=== PATIENT | female | born 1985 | race African-American/Black ===

== ENCOUNTER 2016-10-04 20:25 | Emergency (ER) | payer OTHER ==
[~2016-10-04] VITALS: Ht 152.4 cm; Wt 58.5 kg
[2016-10-05] MEDS ORDERED: ONDANSETRON HCL 4MG/2ML VIAL IV STA (00:01)
[2016-10-05] MEDS ORDERED: FAMOTIDINE 20MG/2ML VIAL IV STA (00:01)
[2016-10-05] MEDS ORDERED: MAGNESIUM/ALUMINUM HYDROXIDE/SIMETHICONE 30ML UDC PO STA (00:01)
[2016-10-05] MEDS ORDERED: SODIUM CHLORIDE 0.9% 1,000 ML IV ONE (00:01)
[2016-10-05] MEDS ORDERED: KETOROLAC 30MG/ML VIAL IV STA (00:01)
[2016-10-05] MEDS ORDERED: VISCOUS LIDOCAINE 2% 15 ML UDC PO STA (00:01)
[2016-10-05 00:23] LABS: CHLORIDE 103 mEq/L (98-107); INDEX HEMOLYSI 1 (1-3); INDEX ICTERIC 1 (1-4); INDEX LIPEMIC 1 (1-3)
[2016-10-05 00:24] LABS: HEMOGLOBIN. 14.3 g/dL (12.0-16.0); MEAN CORPUSCULAR HEMOGLOBIN 32.1 pg (28.0-32.0); MEAN CORPUSCULAR HGB CONC 34.8 g/dL (31.0-37.0); MEAN CORPUSCULAR VOLUME 92.3 fL (81.0-99.0); MEAN PLATELET VOLUME 7.8 fl (7.4-10.4); PLATELET 361 x1000/uL (130-400); RED BLOOD CELL COUNT 4.44 mill/uL (4.2-5.4)
[2016-10-05 00:30] LABS: DIFFERENTIAL COMMENT 1
[2016-10-05 00:31] LABS: ALANINE AMINOTRANSFERASE 19 IU/L (13-61); ANION GAP 14; CALCIUM 8.4 mg/dL (8.5-10.1); CARBON DIOXIDE 28 mEq/L (21-32); LIPASE 106 IU/L (73-393); UREA NITROGEN BLOOD 13 mg/dL (7-21); eGFR > 60 mL/min (>60)
[2016-10-05 01:00] LABS: PLATELET ESTIMATE NORMAL
[2016-10-05 02:10] LABS: CLARITY URINE CLEAR (CLEAR); COLOR URINE YELLOW (YELLOW); GLUCOSE URINE NEGATIVE (NEGATIVE); KETONES URINE 2+ (NEGATIVE); LEUKOCYTE ESTERASE URINE NEGATIVE (NEGATIVE); NITRITE URINE NEGATIVE (NEGATIVE); OCCULT BLOOD URINE TRACE (NEGATIVE); PROTEIN URINE NEGATIVE (NEGATIVE); SPECIFIC GRAVITY URINE 1.016 (1.005-1.030); UROBILINOGEN URINE 0.2 E.U./dL (0.2-1.0)
[2016-10-05 02:15] LABS: BACTERIA URINE TRACE; RBC URINE 0-2 /hpf (0-2); SQUAMOUS EPITHELIAL CELL URINE FEW /lpf (RARE/1+); WBC URINE 0-2 /hpf (0-2)
[2016-10-05 02:42] LABS: *AMPHETAMINES SCREEN URINE NEGATIVE (NEGATIVE); *BARBITURATES SCREEN URINE NEGATIVE (NEGATIVE); *BENZODIAZEPINES SCREEN URINE NEGATIVE (NEGATIVE); *COCAINE SCREEN URINE NEGATIVE (NEGATIVE); CANNABINOID URINE SCREEN PRESUMTIVE POSITIVE (NEGATIVE); ECSTASY MDMA SCREEN URINE NEGATIVE (NEGATIVE); METHADONE URINE SCREEN NEGATIVE (NEGATIVE); OPIATES URINE SCREEN NEGATIVE (NEGATIVE); PHENCYCLIDINE URINE SCREEN NEGATIVE (NEGATIVE)
[2016-10-05 03:16] VITALS: BP 109/77
== END 2016-10-05 03:17 | disposition home or self-care (01) ==
LOC: ER 20:25
DX: N83.202 Unspecified ovarian cyst, left side (principal); N83.201 Unspecified ovarian cyst, right side; Z79.899 Other long term (current) drug therapy
CPT/HCPCS: 36415; 76830; 76856; 80053; 80305; 81001; 81025; 83690; 85025; 96361; 96374; 96375; 99285; J1885; J2405; J3490; J7030

== ENCOUNTER 2017-01-24 12:11 | Emergency (ER) | payer SELFPAY ==
[~2017-01-24] VITALS: Ht 152.4 cm; Wt 58.0 kg
[2017-01-24] MEDS ORDERED: TETANUS, DIPHTHERIA, PERTUSSIS VAC/PF 0.5ML (>7YR OLD) IM ONE (12:45)
[2017-01-24] MEDS ORDERED: LIDOCAINE HCL 1% 20ML VIAL (Pyxis) INJ MC ONE (12:45)
[2017-01-24] MEDS ORDERED: BACITRACIN ZINC OINT UDPKT TOP ONE (12:45)
[2017-01-24 12:50] VITALS: BP 127/91
== END 2017-01-24 14:58 | disposition home or self-care (01) ==
LOC: ER 13:46
DX: S61.211A Laceration without foreign body of left index finger without damage to nail, initial encounter (principal); W45.8XXA Other foreign body or object entering through skin, initial encounter; Y93.89 Activity, other specified; Y92.89 Other specified places as the place of occurrence of the external cause
CPT/HCPCS: 12001; 90471; 90715; 99283; J3490

== ENCOUNTER 2017-06-28 01:09 | Emergency (ER) | payer SELFPAY ==
[~2017-06-28] VITALS: Ht 152.4 cm; Wt 56.8 kg
[2017-06-28 01:10] VITALS: BP 117/81
== END 2017-06-28 03:35 | disposition left against medical advice (07) ==
LOC: ER 01:28
DX: Z53.21 Procedure and treatment not carried out due to patient leaving prior to being seen by health care provider (principal)

== ENCOUNTER 2018-06-09 14:31 | Emergency (ER) | payer MEDICAID ==
[~2018-06-09] VITALS: Ht 165.1 cm; Wt 78.0 kg
[2018-06-09 14:36] VITALS: BP 121/98
== END 2018-06-09 14:58 | disposition left against medical advice (07) ==
LOC: ER 14:43
DX: R10.32 Left lower quadrant pain (principal); R10.31 Right lower quadrant pain; Z53.21 Procedure and treatment not carried out due to patient leaving prior to being seen by health care provider

== ENCOUNTER 2018-09-19 09:31 | Emergency (ER) | payer MEDICAID ==
[~2018-09-19] VITALS: Ht 152.4 cm; Wt 62.0 kg
[2018-09-19] MEDS ORDERED: ACETAMINOPHEN 325MG TABLET PO PRN (10:30)
[2018-09-19 10:53] LABS: BASOPHILS % 0.8 % (0.0-2.0); EOSINOPHILS % 1.3 % (0.0-5.0); HEMATOCRIT. 39.8 % (36.0-48.0); HEMOGLOBIN. 13.7 g/dL (12.0-16.0); LYMPHOCYTES % 10.3 % (20.0-50.0); MEAN CORPUSCULAR VOLUME 92.6 fL (81.0-99.0); MEAN PLATELET VOLUME 7.2 fl (7.4-10.4); MONOCYTES % 7.5 % (2.0-8.0); NEUTROPHILS % 80.1 % (40.0-76.0); PLATELET 439 x1000/uL (130-400); RED BLOOD CELL COUNT 4.29 mill/uL (4.2-5.4); RED CELL DISTRIBUTION WIDTH 12.8 % (11.6-14.6)
[2018-09-19 10:59] LABS: CHLORIDE 106 mEq/L (98-107)
[2018-09-19 11:23] LABS: B-HCG QUANTITATIVE 53567 mIU/mL (<3)
[2018-09-19 11:43] LABS: CLARITY URINE CLEAR (CLEAR); COLOR URINE YELLOW (YELLOW); KETONES URINE TRACE (NEGATIVE); LEUKOCYTE ESTERASE URINE NEGATIVE (NEGATIVE); NITRITE URINE NEGATIVE (NEGATIVE); OCCULT BLOOD URINE NEGATIVE (NEGATIVE); PROTEIN URINE NEGATIVE (NEGATIVE); SPECIFIC GRAVITY URINE 1.008 (1.005-1.030); UROBILINOGEN URINE 0.2 E.U./dL (0.2-1.0)
[2018-09-19 14:18] VITALS: BP 111/65
== END 2018-09-19 14:20 | disposition home or self-care (01) ==
LOC: ER 09:31
DX: O26.891 Other specified pregnancy related conditions, first trimester (principal); S39.012A Strain of muscle, fascia and tendon of lower back, initial encounter; Z3A.08 8 weeks gestation of pregnancy; V43.52XA Car driver injured in collision with other type car in traffic accident, initial encounter; Y93.89 Activity, other specified; Y92.410 Unspecified street and highway as the place of occurrence of the external cause
CPT/HCPCS: 36415; 76801; 84702; 86850; 86900; 99284

== ENCOUNTER 2019-04-08 09:20 | Observation (INO) | payer MEDICARE ==
[~2019-04-08] VITALS: Ht 152.4 cm; Wt 79.4 kg
[2019-04-08] MEDS ORDERED: PNV1TABL76 PO (10:00)
== END 2019-04-08 11:05 | disposition home or self-care (01) ==
LOC: 8 EST LDRP 09:20
PROVIDERS: ADMIT Obstetrics & Gynecology; ATTEND Specialist
DX: O26.893 Other specified pregnancy related conditions, third trimester (principal); R10.30 Lower abdominal pain, unspecified; O62.9 Abnormality of forces of labor, unspecified; Z3A.37 37 weeks gestation of pregnancy
CPT/HCPCS: 99281; G0378

== ENCOUNTER 2020-01-23 07:46 | Observation (INO) | payer MEDICARE ==
[~2020-01-23] VITALS: Ht 152.4 cm; Wt 68.0 kg
[2020-01-23] MEDS ORDERED: ACETAMINOPHEN 325MG TABLET PO PRN (08:15)
[2020-01-23 08:38] LABS: BASOPHILS % 0.9 % (0.0-2.0); EOSINOPHILS % 2.9 % (0.0-5.0); HEMOGLOBIN. 9.2 g/dL (12.0-16.0); LYMPHOCYTES % 18.4 % (20.0-50.0); MEAN CORPUSCULAR HEMOGLOBIN 32.7 pg (28.0-32.0); MEAN CORPUSCULAR VOLUME 95.5 fL (81.0-99.0); MEAN PLATELET VOLUME 7.7 fl (7.4-10.4); MONOCYTES % 6.9 % (2.0-8.0); NEUTROPHILS % 70.9 % (40.0-76.0); PLATELET 248 x1000/uL (130-400); RED BLOOD CELL COUNT 2.83 mill/uL (4.2-5.4)
[2020-01-23 08:43] LABS: CHLORIDE 107 mEq/L (98-107)
[2020-01-23 09:07] LABS: B-HCG QUANTITATIVE 3780 mIU/mL (<3)
[2020-01-23 10:17] VITALS: BP 125/70
[2020-01-23] MEDS ORDERED: FOLI0.4T2 PO (10:49)
[2020-01-23] MEDS ORDERED: PNV1TABL76 PO (10:49)
[2020-01-23] MEDS ORDERED: LACTATED RINGERS 1,000 ML IV SCH ×2 (10:50→11:50)
[2020-01-23] MEDS ORDERED: ACETAMINOPHEN 500MG TABLET PO SCH (11:00)
[2020-01-23 12:08] LABS: CLARITY URINE CLEAR (CLEAR); COLOR URINE YELLOW (YELLOW); KETONES URINE TRACE (NEGATIVE); LEUKOCYTE ESTERASE URINE NEGATIVE (NEGATIVE); NITRITE URINE NEGATIVE (NEGATIVE); OCCULT BLOOD URINE NEGATIVE (NEGATIVE); PH URINE 7.5 (4.5-8.0); PROTEIN URINE NEGATIVE (NEGATIVE); SPECIFIC GRAVITY URINE 1.011 (1.005-1.030); UROBILINOGEN URINE 0.2 E.U./dL (0.2-1.0)
== END 2020-01-23 12:50 | disposition home or self-care (01) ==
LOC: ER 07:46 → 8 EST A/PP 10:28
PROVIDERS: ADMIT Obstetrics & Gynecology; ATTEND Obstetrics & Gynecology
DX: O26.892 Other specified pregnancy related conditions, second trimester (principal); R10.32 Left lower quadrant pain; O26.832 Pregnancy related renal disease, second trimester; O09.522 Supervision of elderly multigravida, second trimester; N28.81 Hypertrophy of kidney; R10.2 Pelvic and perineal pain; Z3A.20 20 weeks gestation of pregnancy
CPT/HCPCS: 36415; 59025; 76805; 80053; 81003; 84702; 85025; 86850; 86900; 86901; 93005; 96360; 96361; 99285; G0378; 99281

== ENCOUNTER 2020-04-01 10:59 | Emergency (ER) | payer MEDICARE ==
[~2020-04-01] VITALS: Ht 152.4 cm; Wt 73.0 kg
[~2020-04-01 10:59] MED LIST: FOLI0.4T2 PO; PNV1TABL76 PO
[2020-04-01] MEDS ORDERED: ACETAMINOPHEN 325MG TABLET PO ONE (12:30)
[2020-04-01 12:55] VITALS: BP 124/81
== END 2020-04-01 12:57 | disposition home or self-care (01) ==
LOC: ER 11:18
DX: M25.531 Pain in right wrist (principal)
CPT/HCPCS: 29125; 99283

== ENCOUNTER 2020-06-04 01:03 | Observation (INO) | payer MEDICARE ==
[~2020-06-04] VITALS: Ht 152.4 cm; Wt 76.7 kg
[2020-06-04] MEDS ORDERED: LACTATED RINGERS 1,000 ML IV SCH (02:30)
== END 2020-06-04 04:55 | disposition home or self-care (01) ==
LOC: 8 EST LDRP 01:03
PROVIDERS: ADMIT Obstetrics & Gynecology; ATTEND Obstetrics & Gynecology
DX: O62.9 Abnormality of forces of labor, unspecified (principal); Z3A.38 38 weeks gestation of pregnancy
CPT/HCPCS: 59025; 96360; 96361; G0378; 99281

== ENCOUNTER 2020-06-08 05:49 | Inpatient (IN) | payer MEDICARE ==
[~2020-06-08] VITALS: Ht 162.6 cm; Wt 81.6 kg
[2020-06-08] MEDS ORDERED: RHO(D) IMMUNE GLOBULIN 300 MCG/SYR IM ONE (07:30)
[2020-06-08] MEDS ORDERED: LIDOCAINE HCL 1% 20ML VIAL (Pyxis) INJ INFIL SCH (07:30)
[2020-06-08] MEDS ORDERED: BUTORPHANOL TARTRATE 2 MG/ML VIAL IV PRN (07:30)
[2020-06-08] MEDS ORDERED: PENICILLIN G POTASSIUM 5 MMU in DEXT 5% WATER 100 ML IV SCH (08:00)
[2020-06-08] MEDS: LACTATED RINGERS 1,000 ML IV SCH ×2 (08:15→10:52)
[2020-06-08 09:05] LABS: CLARITY URINE CLEAR (CLEAR); COLOR URINE YELLOW (YELLOW); KETONES URINE NEGATIVE (NEGATIVE); LEUKOCYTE ESTERASE URINE TRACE (NEGATIVE); NITRITE URINE NEGATIVE (NEGATIVE); OCCULT BLOOD URINE TRACE (NEGATIVE); PROTEIN URINE NEGATIVE (NEGATIVE); SPECIFIC GRAVITY URINE 1.011 (1.005-1.030); UROBILINOGEN URINE 0.2 E.U./dL (0.2-1.0)
[2020-06-08 09:06] LABS: BASOPHILS % 0.5 % (0.0-2.0); EOSINOPHILS % 1.1 % (0.0-5.0); HEMATOCRIT. 39.3 % (36.0-48.0); HEMOGLOBIN. 13.6 g/dL (12.0-16.0); LYMPHOCYTES % 10.2 % (20.0-50.0); MEAN CORPUSCULAR HEMOGLOBIN 31.9 pg (28.0-32.0); MEAN CORPUSCULAR VOLUME 92.2 fL (81.0-99.0); MEAN PLATELET VOLUME 8.8 fl (7.4-10.4); MONOCYTES % 7.3 % (2.0-8.0); NEUTROPHILS % 80.9 % (40.0-76.0); PLATELET 311 x1000/uL (130-400); RED BLOOD CELL COUNT 4.26 mill/uL (4.2-5.4); RED CELL DISTRIBUTION WIDTH 14.6 % (11.6-14.6)
[2020-06-08 09:13] LABS: INR 0.9; PARTIAL THROMBOPLASTIN TIME 30.7 sec (23.4-31.0)
[2020-06-08] MEDS ORDERED: ROPIVACAINE HCL 2MG/ML (0.2%) 100ML BAG IR NR (09:15)
[2020-06-08 09:16] LABS: *AMPHETAMINES SCREEN URINE NEGATIVE (NEGATIVE); *BARBITURATES SCREEN URINE NEGATIVE (NEGATIVE); *BENZODIAZEPINES SCREEN URINE NEGATIVE (NEGATIVE); *COCAINE SCREEN URINE NEGATIVE (NEGATIVE); METHADONE URINE SCREEN NEGATIVE (NEGATIVE); OPIATES URINE SCREEN NEGATIVE (NEGATIVE)
[2020-06-08 09:17] LABS: CANNABINOID URINE SCREEN NEGATIVE (NEGATIVE); PHENCYCLIDINE URINE SCREEN NEGATIVE (NEGATIVE)
[2020-06-08 11:29] LABS: HEPATITIS B SURFACE ANTIGEN NEGATIVE
[2020-06-08] MEDS ORDERED: PENICILLIN G POTASSIUM 2.5 MMU in DEXTROSE 5% WATER 50 ML IV SCH (12:00)
[2020-06-08] MEDS ORDERED: ACETAMINOPHEN 500MG TABLET PO NR (13:00)
[2020-06-08] MEDS ORDERED: DEXT 5%/LR + PITOCIN 20UNITS/L 1,000 ML IV ONE (13:24)
[2020-06-08] MEDS ORDERED: IBUPROFEN 400MG TABLET PO PRN (13:45)
[2020-06-08] MEDS ORDERED: HEMORRHOIDAL SUPP PR PRN (13:45)
[2020-06-08] MEDS ORDERED: BENZOCAINE/LANOLIN/ALOE VERA SPRAY TOP PRN (13:45)
[2020-06-08] MEDS ORDERED: GLYCERIN/WITCH HAZEL LEAF MEDICATED PAD TOP PRN (13:45)
[2020-06-08] MEDS ORDERED: DIPHENHYDRAMINE 25MG CAPSULE PO PRN (13:45)
[2020-06-08] MEDS ORDERED: DEXT 5%/LR + PITOCIN 20UNITS/L 1,000 ML IV SCH (13:45)
[2020-06-08] MEDS ORDERED: BISACODYL 10MG SUPP PR PRN (13:45)
[2020-06-08 14:49] LABS: CHLORIDE 108 mEq/L (98-107)
[2020-06-08 16:00] VITALS: BP 102/61
[2020-06-08] MEDS: ACETAMINOPHEN WITH CODEINE 300/30MG TABLET PO PRN (16:31)
[2020-06-08 17:00] VITALS: BP 117/80
[2020-06-08] MEDS: IBUPROFEN 800MG TABLET PO PRN (17:03)
[2020-06-08] MEDS: AMPICILLIN 2,000 MG in SODIUM CHLORIDE 0.9% 100 ML IV SCH ×2 (17:03→22:45)
[2020-06-08] MEDS: GENTAMICIN 100MG PREMIX 50 ML IV SCH (17:53)
[2020-06-08 20:00] VITALS: BP 104/52
[2020-06-08] MEDS: DOCUSATE SODIUM 100MG CAPSULE PO SCH (21:14)
[2020-06-09 04:00] VITALS: BP 92/61
[2020-06-09] MEDS ORDERED: IBUP-2030 PO (04:25)
[2020-06-09] MEDS ORDERED: FERR325T23 PO (04:25)
[2020-06-09] MEDS: AMPICILLIN 2,000 MG in SODIUM CHLORIDE 0.9% 100 ML IV SCH ×4 (04:30→22:49)
[2020-06-09] MEDS: IBUPROFEN 800MG TABLET PO PRN ×3 (04:30→20:41)
[2020-06-09] MEDS: GENTAMICIN 100MG PREMIX 50 ML IV SCH ×2 (05:56→18:20)
[2020-06-09] MEDS: ACETAMINOPHEN WITH CODEINE 300/30MG TABLET PO PRN (06:11)
[2020-06-09 07:25] LABS: BASOPHILS % 0.2 % (0.0-2.0); EOSINOPHILS % 0.8 % (0.0-5.0); HEMATOCRIT. 36.2 % (36.0-48.0); HEMOGLOBIN. 12.7 g/dL (12.0-16.0); LYMPHOCYTES % 10.2 % (20.0-50.0); MEAN CORPUSCULAR HEMOGLOBIN 32.1 pg (28.0-32.0); MEAN CORPUSCULAR VOLUME 91.6 fL (81.0-99.0); MEAN PLATELET VOLUME 8.4 fl (7.4-10.4); NEUTROPHILS % 80.8 % (40.0-76.0); PLATELET 274 x1000/uL (130-400); RED BLOOD CELL COUNT 3.95 mill/uL (4.2-5.4); RED CELL DISTRIBUTION WIDTH 14.6 % (11.6-14.6)
[2020-06-09 08:00] VITALS: BP 100/56
[2020-06-09] MEDS ORDERED: PRENATAL VIT/FE FUMARATE/FA TABLET PO SCH (09:00)
[2020-06-09] MEDS: FERROUS SULFATE 325MG TABLET PO SCH ×2 (09:53→15:03)
[2020-06-09 16:02] VITALS: BP 109/76
[2020-06-09 20:30] VITALS: BP 124/90
[2020-06-09] MEDS: DOCUSATE SODIUM 100MG CAPSULE PO SCH (20:41)
[2020-06-10 04:50] VITALS: BP 107/72
[2020-06-10] MEDS: AMPICILLIN 2,000 MG in SODIUM CHLORIDE 0.9% 100 ML IV SCH (04:57)
[2020-06-10] MEDS: GENTAMICIN 100MG PREMIX 50 ML IV SCH (05:50)
[2020-06-10 06:48] LABS: BASOPHILS % 0.9 % (0.0-2.0); EOSINOPHILS % 3.6 % (0.0-5.0); HEMATOCRIT. 38.6 % (36.0-48.0); HEMOGLOBIN. 13.2 g/dL (12.0-16.0); LYMPHOCYTES % 15.5 % (20.0-50.0); MEAN CORPUSCULAR HEMOGLOBIN 31.4 pg (28.0-32.0); MEAN CORPUSCULAR VOLUME 92.1 fL (81.0-99.0); MEAN PLATELET VOLUME 8.3 fl (7.4-10.4); MONOCYTES % 8.5 % (2.0-8.0); NEUTROPHILS % 71.5 % (40.0-76.0); PLATELET 297 x1000/uL (130-400); RED BLOOD CELL COUNT 4.19 mill/uL (4.2-5.4)
[2020-06-10 08:00] VITALS: BP 120/81
== END 2020-06-10 13:40 | disposition home or self-care (01) | DRG 560 ==
LOC: OBSVTOIN 05:49 → 8 EST LDRP 05:49 → INTOOBSV 05:49 → 8EST 15:50
PROVIDERS: ADMIT Obstetrics & Gynecology; ATTEND Obstetrics & Gynecology
PROC: 10E0XZZ Delivery of Products of Conception, External Approach (ICD-10-PCS; principal; 2020-06-08)
PROC: 3E0R3BZ Introduction of Anesthetic Agent into Spinal Canal, Percutaneous Approach (ICD-10-PCS; 2020-06-08)
PROC: 00HU33Z Insertion of Infusion Device into Spinal Canal, Percutaneous Approach (ICD-10-PCS; 2020-06-08)
DX: O80 Encounter for full-term uncomplicated delivery (principal); Z91.018 Allergy to other foods; Z37.0 Single live birth; Z3A.39 39 weeks gestation of pregnancy
CPT/HCPCS: 36415; 80048; 80305; 81003; 85025; 86592; 86703; 86762; 86850; 86900; 87075; 87076; 87340; 99281; J0290; J0595; J1580; J2540; J2590; J2795; J7050; J7060; J7120